=== PATIENT | female | born 1965 | race Caucasian/White ===

== ENCOUNTER → 2017-03-22 | Outpatient (CLI) | payer MEDICAID, OTHER ==
--- NOTE | 2017-03-22 15:29 | CR ---
EXAMINATION: Lumbar spine HISTORY: Pain COMPARISON: None TECHNIQUE: AP and lateral views FINDINGS: The lumbar spinal alignment appears normal. The vertebral body heights and disc spaces are grossly maintained. Minimal marginal osteophytes are noted. The SI joints are symmetric. No fractur e or acute osseous abnormality. IMPRESSION: Mild degenerative changes without acute findings.
== END ==
LOC: MW.CHFP 10:12
PROVIDERS: ATTEND Student in an Organized Health Care Education/Training Program
DX: M54.5 Low back pain (principal); M47.816 Spondylosis without myelopathy or radiculopathy, lumbar region
CPT/HCPCS: 72100; 72100-26

== ENCOUNTER 2017-04-06 10:37 | Emergency (ER) | payer MEDICAID ==
[2017-04-06] MEDS ORDERED: Sodium Chloride 0.9% 1,000 ML IV ONE (10:41)
[2017-04-06] MEDS ORDERED: Aspirin 81 MG Tab.Chew PO ONE (10:41)
--- NOTE | 2017-04-06 10:44 | EDM.PDOC ---
ED HPI GENERAL MEDICAL PROBLEM - General Chief Complaint: Chest Pain Stated Complaint: POSS HEART ATTACK Time Seen by Provider: 04/06/17 10:42 Source of Information: Reports: Patient - History of Present Illness INITIAL COMMENTS - FREE TEXT/NARRATIVE: HISTORY AND PHYSICAL: History of present illness: [] Patient presents via EMS with 1/10 chest pain nonradiating arm neck or jaw not associated with diaphoresis or shortness of breath, patient states that she is dizzy No fever nausea vomiting chills sweats Patient has history of hypertension on lisinopril Review of systems: As per history of present illness and below otherwise all systems reviewed and negative. Past medical history: As per history of present illness and as reviewed below otherwise noncontributory. Surgical history: As per history of present illness and as reviewed below otherwise noncontributory. Social history: No reported history of drug or alcohol abuse. Family history: As per history of present illness and as reviewed below otherwise noncontributory. Physical exam: HEENT: Atraumatic, normocephalic, pupils reactive, negative for conjunctival pallor or scleral icterus, mucous membranes moist, throat clear, neck supple, nontender, trachea midline. Lungs: Clear to auscultation, breath sounds equal bilaterally, chest nontender. Heart: S1S2, regular, negative for clicks, rubs, or JVD. Abdomen: Soft, nondistended, nontender. Negative for masses or hepatosplenomegaly. Negative for costovertebral tenderness. Pelvis: Stable nontender. Genitourinary: Deferred. Rectal: Deferred. Extremities: Atraumatic, negative for cords or calf pain. Neurovascular unremarkable. Neuro: Awake, alert, oriented. Cranial nerves II through XII unremarkable. Cerebellum unremarkable. Motor and sensory unremarkable throughout. Exam nonfocal. Diagnostics: [] As below EKG Chest one view Therapeutics: [] One there normal saline bolus Aspirin 324 mg chewable Lopressor 5 mg IV Patient provided one dose of nitroglycerin, more for blood pressure and chest pain Patient offered admission for observation telemetry and following of cardiac enzymes she refused Patient discharged Return if symptoms persist or worsen Impression: Atypical chest pain Hypertension Definitive disposition and diagnosis as appropriate pending reevaluation and review of above. 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 History: Reports: None Neurological History: Reports: None Psychiatric History: Reports: None Endocrine/Metabolic History: Reports: None Hematologic History: Reports: None Immunologic History: Reports: None Oncologic (Cancer) History: Reports: None Dermatologic History: Reports: None - Infectious Disease History Infectious Disease History: Reports: Chicken Pox, Mumps - Past Surgical History Head Surgeries/Procedures: Reports: None HEENT Surgical History: Reports: None GI Surgical History: Reports: None Female Surgical History: Reports: Section, Hysterectomy Musculoskeletal Surgical History: Reports: None Social & Family History - Tobacco Use Smoking Status *Q: Current Every Day Smoker Years of Tobacco use: 35 Packs/Tins Daily: 0.5 - Caffeine Use Caffeine Use: Reports: Coffee - Recreational Drug Use Recreational Drug Use: No ED ROS GENERAL - Review of Systems Review Of Systems: ROS reveals no pertinent complaints other than HPI. ED EXAM, GENERAL - Physical Exam Exam: See Below Course - Vital Signs Last Recorded V/S: Last Vital Signs Temp 36.9 C 04/06/17 10:41 Pulse 88 04/06/17 11:09 Resp 18 04/06/17 11:09 BP 179/97 H 04/06/17 11:16 Pulse Ox 99 04/06/17 11:09 - Orders/Labs/Meds Orders: Active Orders 24 hr Category Date Time Status EKG Documentation Completion [RC] STAT Care 04/06/17 10:44 Active Head wo Cont [CT] Stat Exams 04/06/17 11:01 Taken AMYLASE [CHEM] Stat Lab 04/06/17 10:46 Results CKMB [CHEM] Stat Lab 04/06/17 10:46 Results COMPREHENSIVE METABOLIC PN,CMP [CHEM] Stat Lab 04/06/17 10:46 Results CREATINE KINASE,CK [CHEM] Stat Lab 04/06/17 10:46 Results LIPASE [CHEM] Stat Lab 04/06/17 10:46 Results UA W/MICROSCOPIC [URIN] Stat Lab 04/06/17 10:41 Uncollected Labs: Laboratory Tests 04/06/17 04/06/17 04/06/17 Range/Units 10:46 10:46 10:46 WBC 9.54 (4.0-11.0) K/uL RBC 4.71 (4.30-5.90) M/uL Hgb 15.5 (12.0-16.0) g/dL Hct 46.1 H (36.0-46.0) % MCV 97.9 (80.0-98.0) fL MCH 32.9 H (27.0-32.0) pg MCHC 33.6 (31.0-37.0) g/dL RDW Std Deviation 49.1 (28.0-62.0) fl RDW Coeff of Bubba 14 (11.0-15.0) % Plt Count 204 (150-400) K/uL MPV 11.70 (7.40-12.00) fL Neut % (Auto) 56.0 (48.0-80.0) % Lymph % (Auto) 34.3 (16.0-40.0) % [place] % (Auto) 7.1 (0.0-15.0) % Eos % (Auto) 2.4 (0.0-7.0) % Baso % (Auto) 0.2 (0.0-1.5) % Neut # (Auto) 5.3 (1.4-5.7) K/uL Lymph # (Auto) 3.3 H (0.6-2.4) K/uL [place] # (Auto) 0.7 (0.0-0.8) K/uL Eos # (Auto) 0.2 (0.0-0.7) K/uL Baso # (Auto) 0.0 (0.0-0.1) K/uL Nucleated RBC % 0.0 /100WBC Nucleated RBCs # 0 K/uL INR (0.86-1.11) Sodium 140 (136-146) mmol/L Potassium 3.8 (3.5-5.1) mmol/L Chloride 107 (98-110) mmol/L Carbon Dioxide 19 L (21-31) mmol/L BUN 13 (6.0-23.0) mg/dL Creatinine 0.8 (0.6-1.5) mg/dL Est Cr Clr Drug Dosing 60.43 mL/min Estimated GFR (MDRD) > 60.0 ml/min Glucose 96 (60-110) mg/dL Calcium 9.4 (8.8-10.8) mg/dL Total Bilirubin 0.6 (0.1-1.5) mg/dL AST 20 (5-40) IU/L ALT 16 (8-54) IU/L Alkaline Phosphatase 86 (40-150) Creatine Kinase 63 (9-236) IU/L Troponin I < 0.10 (0.0-0.29) NG/ML Total Protein 8.0 (6.0-8.0) g/dL Albumin 4.8 (3.5-5.0) g/dL Globulin 3.2 (2.0-3.5) g/dL Albumin/Globulin Ratio 1.5 (1.3-2.8) Amylase 103 H (10-90) U/L Lipase 38 (7-80) U/L 04/06/17 Range/Units 10:46 WBC (4.0-11.0) K/uL RBC (4.30-5.90) M/uL Hgb (12.0-16.0) g/dL Hct (36.0-46.0) % MCV (80.0-98.0) fL MCH (27.0-32.0) pg MCHC (31.0-37.0) g/dL RDW Std Deviation (28.0-62.0) fl RDW Coeff of Bubba (11.0-15.0) % Plt Count (150-400) K/uL MPV (7.40-12.00) fL Neut % (Auto) (48.0-80.0) % Lymph % (Auto) (16.0-40.0) % [place] % (Auto) (0.0-15.0) % Eos % (Auto) (0.0-7.0) % Baso % (Auto) (0.0-1.5) % Neut # (Auto) (1.4-5.7) K/uL Lymph # (Auto) (0.6-2.4) K/uL [place] # (Auto) (0.0-0.8) K/uL Eos # (Auto) (0.0-0.7) K/uL Baso # (Auto) (0.0-0.1) K/uL Nucleated RBC % /100WBC Nucleated RBCs # K/uL INR 0.97 (0.86-1.11) Sodium (136-146) mmol/L Potassium (3.5-5.1) mmol/L Chloride (98-110) mmol/L Carbon Dioxide (21-31) mmol/L BUN (6.0-23.0) mg/dL Creatinine (0.6-1.5) mg/dL Est Cr Clr Drug Dosing mL/min Estimated GFR (MDRD) ml/min Glucose (60-110) mg/dL Calcium (8.8-10.8) mg/dL Total Bilirubin (0.1-1.5) mg/dL AST (5-40) IU/L ALT (8-54) IU/L Alkaline Phosphatase (40-150) Creatine Kinase (9-236) IU/L Troponin I (0.0-0.29) NG/ML Total Protein (6.0-8.0) g/dL Albumin (3.5-5.0) g/dL Globulin (2.0-3.5) g/dL Albumin/Globulin Ratio (1.3-2.8) Amylase (10-90) U/L Lipase (7-80) U/L Meds: Medications Discontinued Medications Generic Name Dose Route Start Last Admin Trade Name Freq PRN Reason Stop Dose Admin Aspirin 324 mg 04/06/17 10:41 04/06/17 10:47 Aspirin PO 04/06/17 10:42 324 mg ONETIME ONE Administration Sodium Chloride 1,000 mls @ 999 mls/hr 04/06/17 10:41 04/06/17 10:48 Normal Saline IV 04/06/17 11:41 999 mls/hr STAT ONE Administration Metoprolol Tartrate 5 mg 04/06/17 10:45 04/06/17 10:52 Lopressor .XX 04/06/17 10:46 5 mg NOW STA Administration Nitroglycerin 0.4 mg 04/06/17 11:09 04/06/17 11:16 Nitrostat SL 04/06/17 11:20 0.4 mg Q5M PRN Administration Chest Pain Departure - Departure Time of Disposition: 12:22 Disposition: Home, Self-Care 01 Condition: good Clinical Impression: Atypical chest pain, Hypertension - Discharge Information Forms: ED Department Discharge Additional Instructions: Return if symptoms persist or worsen or new concerning symptoms develop Followup with primary care in 2 weeks sooner as needed [facility] - Primary Care [address] [place] [id number] The following information is given to patients seen in the emergency department who are being discharged to home. This information is to outline your options for follow-up care. We provide all patients seen in our emergency department with a follow-up referral. The need for follow-up, as well as the timing and circumstances, are variable depending upon the specifics of your emergency department visit. If you don't have a primary care physician on staff, we will provide you with a referral. We always advise you to contact your personal physician following an emergency department visit to inform them of the circumstance of the visit and for follow-up with them and/or the need for any referrals to a consulting specialist. The emergency department will also refer you to a specialist when appropriate. This referral assures that you have the opportunity for follow-up care with a specialist. All of these measure are taken in an effort to provide you with optimal care, which includes your follow-up. Under all circumstances we always encourage you to contact your private physician who remains a resource for coordinating your care. When calling for follow-up care, please make the office aware that this follow-up is from your recent emergency room visit. If for any reason you are refused follow-up, please contact the [facility] emergency department at and asked to speak to the emergency department charge nurse. - My Orders Last 24 Hours: My Active Orders 04/06/17 10:41 UA W/MICROSCOPIC [URIN] Stat 04/06/17 10:44 EKG Documentation Completion [RC] STAT 04/06/17 10:46 AMYLASE [CHEM] Stat CKMB [CHEM] Stat COMPREHENSIVE METABOLIC PN,CMP [CHEM] Stat CREATINE KINASE,CK [CHEM] Stat LIPASE [CHEM] Stat 04/06/17 11:01 Head wo Cont [CT] Stat - Assessment/Plan Last 24 Hours: My Active Orders 04/06/17 10:41 UA W/MICROSCOPIC [URIN] Stat 04/06/17 10:44 EKG Documentation Completion [RC] STAT 04/06/17 10:46 AMYLASE [CHEM] Stat CKMB [CHEM] Stat COMPREHENSIVE METABOLIC PN,CMP [CHEM] Stat CREATINE KINASE,CK [CHEM] Stat LIPASE [CHEM] Stat 04/06/17 11:01 Head wo Cont [CT] Stat
[2017-04-06] MEDS ORDERED: Metoprolol Tartrate 5 MG/5 ML SDV STA (10:45)
[2017-04-06] MEDS ORDERED: Nitroglycerin 0.4 MG Tab.SL SL PRN (11:09)
[2017-04-06 11:20] LABS: CHLORIDE,CL 107 mmol/L (98-110); SODIUM,NA 140 mmol/L (136-146)
--- NOTE | 2017-04-06 11:32 | CR ---
EXAM DATE: 04/06/17 PATIENT'S AGE: 51 Patient: RAIN SRINIVASAN Facility: [place], [place] Site . Site : 1965 Study: XRay Chest [id number]/2/2017 11:14:26 AM Ordering Physician: Rena Herron Final Report: INDICATION: Pain/shortness of breath. Single AP view Findings: The lungs are clear. Pulmonary vascularity, mediastinum and cardiac silhouette are within normal limits. No effusions and no pneumothorax. Osseous structures appear unremarkable. Impression: No evidence of acute cardiopulmonary disease. Dictated by: Jamir Gupta MD @ 04/06/2017 11:23:17 (Electronic Signature) Report Signed by Proxy. STEPHANI
--- NOTE | 2017-04-06 12:25 | CT ---
EXAM DATE: 04/06/17 PATIENT'S AGE: 51 Patient: RAIN SRINIVASAN Facility: [place], [place] Site . Site : 1965 Study: CT Head [id number]/2/[id number] 11:48:00 AM Ordering Physician: Rena Herron Final Report: INDICATION: dizziness, tachycardia, shaking R hand CT SCAN HEAD WITHOUT CONTRAST TECHNIQUE: Direct axial non-contrast images of the head from foramen magnum to vertex are provided. FINDINGS: Axial images of the brain demonstrate a normal appearance of the ventricles, sulci and basal cistern. There is no evidence of intracranial hemorrhage, infarct, mass or mass effect. Oconnell-white differentiation is normal throughout. Visualized mastoid air cells and middle ear cavities are clear. The visualized paranasal sinuses are clear other than small mucous retention cyst posterior left sphenoid. The orbits are symmetric. CONCLUSION: Unremarkable unenhanced head CT. Dictated by: Jamir Gupta MD @ 04/06/2017 12:05:04 (Electronic Signature) Report Signed by Proxy. STEPHANI
[2017-04-06 16:58] VITALS: BP 142/88
== END 2017-04-06 13:11 | disposition home or self-care (01) ==
LOC: MW.ED 10:37
DX: R07.89 Other chest pain (principal); I10 Essential (primary) hypertension; F17.210 Nicotine dependence, cigarettes, uncomplicated; Z90.710 Acquired absence of both cervix and uterus; Z79.899 Other long term (current) drug therapy
CPT/HCPCS: 36415; 70450; 71010; 80053; 82150; 82550; 82553; 83690; 84484; 85025; 85610; 93005; 96361; 96374; 99285; A9270; J7040; 99284

== ENCOUNTER 2017-09-21 14:00 | Observation (INO) | payer MEDICAID ==
[2017-09-21] MEDS ORDERED: Aspirin 81 MG Tab.Chew PO ONE (14:08)
[2017-09-21] MEDS ORDERED: Sodium Chloride 0.9% 1,000 ML IV ONE (14:09)
[2017-09-21] MEDS: Nitroglycerin 0.4 MG Tab.SL SL PRN ×3 (14:18→14:35)
--- NOTE | 2017-09-21 14:32 | EDM.PDOC ---
ED HPI GENERAL MEDICAL PROBLEM - General Chief Complaint: Chest Pain Stated Complaint: chest pain Time Seen by Provider: 09/21/17 14:22 Source of Information: Reports: Patient History Limitations: Reports: No Limitations - History of Present Illness INITIAL COMMENTS - FREE TEXT/NARRATIVE: HISTORY AND PHYSICAL: Chest pain History of present illness: Patient is a 52-year-old female who presents to the emergency room today with complaints of midsternal chest pain. States she was "out partying last night" and had felt fine. Woke up this morning proceeded to make breakfast and started having midsternal chest pain that would not resolve, which was accompanied with "fogginess". Reports that nothing would make the pain better and nothing makes the pain worse. Pain has been steady at a 3 out of 10. She denies that the chest pain radiating anywhere. Denies any shortness of breath, diaphoresis, nausea, vomiting, diarrhea, headache. Denies any syncopal events, palpitations, or recent injury. History of hypertension. She was on lisinopril previously for this, but states that since losing so much weight she has taken herself off of this medication. She reports routinely checking her blood pressure at home which has been normal. History of smoking 1 pack per day 46 years. No family history of heart disease. Father has history of hypertension. Review of systems: As per history of present illness and below otherwise all systems reviewed and negative. Past medical history: As per history of present illness and as reviewed below otherwise noncontributory. Surgical history: As per history of present illness and as reviewed below otherwise noncontributory. Social history: No reported history of drug or alcohol abuse. Family history: As per history of present illness and as reviewed below otherwise noncontributory. Physical exam: Gen.: Well-developed and well-nourished 52-year-old female. Appears nontoxic. Alert and oriented. HEENT: Atraumatic, normocephalic, pupils reactive, negative for conjunctival pallor or scleral icterus, mucous membranes moist, throat clear, neck supple, nontender, trachea midline. Lungs: Clear to auscultation, breath sounds equal bilaterally, chest nontender. Chest pain is non-reproducible. Heart: S1S2, regular rate and rhythm. No overt murmurs. Abdomen: Soft, nondistended, nontender. Negative for masses or hepatosplenomegaly. Negative for costovertebral tenderness. Pelvis: Stable nontender. Genitourinary: Deferred. Rectal: Deferred. Extremities: Atraumatic, negative for cords or calf pain. Neurovascular unremarkable. Neuro: Awake, alert, oriented. Cranial nerves II through XII unremarkable. Cerebellum unremarkable. Motor and sensory unremarkable throughout. Exam nonfocal. EKG was reviewed by me and Dr. Beckford. Current blood pressure is 184/86, patient reports that this is high for her. Current chest pain is 3/10. We did discuss the plan of action for diagnostics and therapeutics. Due to her multiple risk factors I did inform the patient that she will likely be offered admission at the end of her evaluation today. Patient states she is agreeable to stay "if you think it's best". Will continue to monitor. The labs, EKG and x-ray were reviewed by me and discussed with the patient. Due to the patient's risk factors of hypertension, age, smoking I suggested that the patient stay for observation. The patient is agreeable. Dr. Winkler reviewed the case and excepted to keep for observation. Nitro paste was applied here. Telemetry applied prior to the floor. A signs remained stable. Pain is currently a 0 out of 10. Diagnostics: CBC, CMP, troponin, EKG, one view chest, cardiac catheterization technician Therapeutics: Aspirin, IV fluid, nitroglycerin sublingual Nitroglycerin paste Impression: Chest pain Plan: Observation admission for chest pain rule out [place] Telemetry Definitive disposition and diagnosis as appropriate pending reevaluation and review of above. 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 History: Reports: None Neurological History: Reports: None Psychiatric History: Reports: None Endocrine/Metabolic History: Reports: None Hematologic History: Reports: None Immunologic History: Reports: None Oncologic (Cancer) History: Reports: None Dermatologic History: Reports: None - Infectious Disease History Infectious Disease History: Reports: Chicken Pox, Mumps - Past Surgical History Head Surgeries/Procedures: Reports: None HEENT Surgical History: Reports: None GI Surgical History: Reports: None Female Surgical History: Reports: Section, Hysterectomy Musculoskeletal Surgical History: Reports: None Social & Family History - Family History Family Medical History: Noncontributory - Tobacco Use Smoking Status *Q: Current Every Day Smoker Years of Tobacco use: 45 Packs/Tins Daily: 0.5 - Caffeine Use Caffeine Use: Reports: Coffee Caffeine Use Comment: 2cups/day - Alcohol Use Days Per Week of Alcohol Use: 4 Number of Drinks Per Day: 7 Total Drinks Per Week: 28 - Recreational Drug Use Recreational Drug Use: Yes Recreational Drug Type: Reports: Marijuana/Hashish Recreational Drug Use Frequency: Daily Recreational Drug Last Use: last night ED ROS GENERAL - Review of Systems Review Of Systems: ROS reveals no pertinent complaints other than HPI. ED EXAM, GENERAL - Physical Exam Exam: See Below (See dictation) Course - Vital Signs Last Recorded V/S: Last Vital Signs Temp 36.6 C 09/21/17 14:09 Pulse 82 09/21/17 15:15 Resp 12 09/21/17 15:15 BP 140/80 09/21/17 15:15 Pulse Ox 96 09/21/17 15:15 - Orders/Labs/Meds Orders: Active Orders 24 hr Category Date Time Status Admission Status [Patient Status] [ADT] Stat ADT 09/21/17 15:24 Ordered EKG Documentation Completion [RC] STAT Care 09/21/17 14:08 Active Nitroglycerin [Nitro-Bid 2%] Med 09/21/17 15:25 Once 1 gm TOP ONETIME ONE Labs: Laboratory Tests 09/21/17 09/21/17 Range/Units 14:34 14:34 WBC 8.58 (4.0-11.0) K/uL RBC 4.31 (4.30-5.90) M/uL Hgb 14.5 (12.0-16.0) g/dL Hct 42.9 (36.0-46.0) % MCV 99.5 H (80.0-98.0) fL MCH 33.6 H (27.0-32.0) pg MCHC 33.8 (31.0-37.0) g/dL RDW Std Deviation 48.5 (28.0-62.0) fl RDW Coeff of Bubba 13 (11.0-15.0) % Plt Count 226 (150-400) K/uL MPV 11.50 (7.40-12.00) fL Neut % (Auto) 64.6 (48.0-80.0) % Lymph % (Auto) 26.2 (16.0-40.0) % [place] % (Auto) 6.4 (0.0-15.0) % Eos % (Auto) 2.6 (0.0-7.0) % Baso % (Auto) 0.2 (0.0-1.5) % Neut # (Auto) 5.5 (1.4-5.7) K/uL Lymph # (Auto) 2.3 (0.6-2.4) K/uL [place] # (Auto) 0.6 (0.0-0.8) K/uL Eos # (Auto) 0.2 (0.0-0.7) K/uL Baso # (Auto) 0.0 (0.0-0.1) K/uL Nucleated RBC % 0.0 /100WBC Nucleated RBCs # 0 K/uL Sodium 142 (136-146) mmol/L Potassium 3.6 (3.5-5.1) mmol/L Chloride 107 (98-110) mmol/L Carbon Dioxide 27 (21-31) mmol/L BUN 16 (6.0-23.0) mg/dL Creatinine 0.7 (0.6-1.5) mg/dL Est Cr Clr Drug Dosing 68.29 mL/min Estimated GFR (MDRD) > 60.0 ml/min Glucose 148 H (60-110) mg/dL Calcium 9.2 (8.8-10.8) mg/dL Total Bilirubin 0.3 (0.1-1.5) mg/dL AST 17 (5-40) IU/L ALT 17 (8-54) IU/L Alkaline Phosphatase 84 (40-150) Troponin I < 0.10 (0.0-0.29) NG/ML Total Protein 7.1 (6.0-8.0) g/dL Albumin 4.0 (3.5-5.0) g/dL Globulin 3.1 (2.0-3.5) g/dL Albumin/Globulin Ratio 1.3 (1.3-2.8) Meds: Medications Discontinued Medications Generic Name Dose Route Start Last Admin Trade Name Freq PRN Reason Stop Dose Admin Aspirin 324 mg 09/21/17 14:08 09/21/17 14:19 Aspirin PO 09/21/17 14:09 324 mg ONETIME ONE Administration Sodium Chloride 1,000 mls @ 999 mls/hr 09/21/17 14:09 09/21/17 14:24 Normal Saline IV 09/21/17 15:09 999 mls/hr STAT ONE Administration Nitroglycerin 0.4 mg 09/21/17 14:08 09/21/17 14:35 Nitrostat SL 0.4 mg Q5M PRN Administration Chest Pain Departure - Departure Time of Disposition: 15:27 Disposition: Refer to Observation Clinical Impression: Chest pain, rule out acute myocardial infarction Referrals: Manuel Mercer MD [Primary Care Provider] - Forms: ED Department Discharge - My Orders Last 24 Hours: My Active Orders 09/21/17 14:08 EKG Documentation Completion [RC] STAT 09/21/17 15:24 Admission Status [Patient Status] [ADT] Stat 09/21/17 15:25 Nitroglycerin [Nitro-Bid 2%] 1 gm TOP ONETIME ONE - Assessment/Plan Last 24 Hours: My Active Orders 09/21/17 14:08 EKG Documentation Completion [RC] STAT 09/21/17 15:24 Admission Status [Patient Status] [ADT] Stat 09/21/17 15:25 Nitroglycerin [Nitro-Bid 2%] 1 gm TOP ONETIME ONE
[2017-09-21 15:03] LABS: CHLORIDE,CL 107 mmol/L (98-110); SODIUM,NA 142 mmol/L (136-146)
--- NOTE | 2017-09-21 15:13 | CR ---
EXAMINATION: PA chest radiograph. HISTORY: Chest pain. FINDINGS: The trachea is midline. The cardiomediastinal silhouette is within normal limits. No pulmonary infilt rates, effusions or pneumothorax. Small calcified granulomas noted. Osseous structures appear unremarkable. IMPRESSION: No acute cardiopulmonary process.
[2017-09-21] MEDS ORDERED: Nitroglycerin 2% Oint 1 GM UD Packet TOP ONE (15:25)
[2017-09-21] MEDS ORDERED: Acetaminophen 325 MG Tab PO PRN (15:51)
[2017-09-21] MEDS ORDERED: Ondansetron 4 MG/2 ML SDV IVPUSH PRN (15:51)
--- NOTE | 2017-09-21 16:05 | PCM.HP ---
H&P History of Present Illness - General Date of Service: 09/21/17 Admit Problem/Dx: Chest pain Source of Information: Patient History Limitations: Reports: No Limitations - History of Present Illness Initial Comments - Free Text/Narative: This 52 year old female with pmh of HTN, tobacco use, and alcohol use presented to the ED with concerns of midsternal chest pain. This pain started around noon today after eating a breakfast burrito with salsa. She reports the pain as a dull pain that is pushing out of her chest. She denies SOB, radiation of pain to arm, neck or back, no diaphoresis. She was at rest when the pain started. She check her BP at the time of the pain and noted it was 160/100s which is very elevated for her. She reports she tried taking one of her husbands nitros, but it didn't dissolve. Nothing was helping her pain. She reports she had a stress test 20+ years ago, no stenting or angiogram. No hx of CAD or ID for her and no DM. She reports burping more and more that last week or so. She reports she drinks daily 4-5 beers or more. She does not wake up needing alcohol or shaking. She has never withdrawn from alcohol. She smokes, hand rolled cigarettes approximately 10 daily and also reports nearly regular marijuana use as well. In the ED labwork WNL, glucose 148. A1c 5.3. Troponin negative. EKG, ST 100s with slight prolonged [place], no ST segment changes. CXR negative. BP in ED 180/80s , she was given nitro x3, with resolution in pain. BP on admission to floor 140/ 80s, nitro paste in place. She will be admitted for chest pain R/O ACS. PCP, Dr Mercer. chest Pain Score (Numeric/FACES): 3 - Related Data Allergies/Adverse Reactions: Allergies Allergy/AdvReac Type Severity Reaction Status Date / Time No Known Allergies Allergy Verified 09/21/17 14:08 Home Medications: Home Meds Aspirin [Gonsalo Chewable] 81 mg PO DAILY 09/21/17 [History] Past Medical History HEENT History: Reports: None Other HEENT History: wears glasses Cardiovascular History: Reports: Hypertension. Denies: Afib, Blood Clots/VTE/ DVT, CAD, Heart Failure, High Cholesterol, ID Respiratory History: Reports: None. Denies: Asthma, COPD, Sleep Apnea, SOB Gastrointestinal History: Reports: None. Denies: GERD, GI Bleed Genitourinary History: Reports: None. Denies: Acute Renal Failure, Chronic Renal Insuffiency CRM MANAGER History: Reports: Musculoskeletal History: Reports: None Neurological History: Reports: None Psychiatric History: Reports: Addiction, Anxiety Endocrine/Metabolic History: Reports: None. Denies: Diabetes, Type II Hematologic History: Reports: None Immunologic History: Reports: None Oncologic (Cancer) History: Reports: None Dermatologic History: Reports: None - Infectious Disease History Infectious Disease History: Reports: Chicken Pox, Mumps - Past Surgical History Head Surgeries/Procedures: Reports: None HEENT Surgical History: Reports: None GI Surgical History: Reports: None Female Surgical History: Reports: Section, Hysterectomy Musculoskeletal Surgical History: Reports: None Social & Family History - Family History Family Medical History: Noncontributory - Tobacco Use Smoking Status *Q: Current Every Day Smoker Years of Tobacco use: 45 Packs/Tins Daily: 0.5 Smoking Cessation Information Provided To Patient: Yes Second Hand Smoke Exposure: Yes - Caffeine Use Caffeine Use: Reports: Coffee Caffeine Use Comment: 2cups/day - Alcohol Use Days Per Week of Alcohol Use: 4 Number of Drinks Per Day: 7 Total Drinks Per Week: 28 Alcohol Use Frequency: Daily - Recreational Drug Use Recreational Drug Use: Yes Recreational Drug Type: Reports: Marijuana/Hashish Recreational Drug Use Frequency: Daily Recreational Drug Last Use: last night - Living Situation & Occupation Living situation: Reports: 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 Denies: Fever, Chills, Malaise, Weakness HEENT: Reports: No Symptoms. Denies: Headaches, Sinus Congestion, Sore Throat, Visual Changes Pulmonary: Reports: No Symptoms. Denies: Shortness of Breath, Cough, Sputum Cardiovascular: Reports: No Symptoms. Denies: Chest Pain (no longer having chest pain) Gastrointestinal: Reports: Other (burping alot). Denies: Abdominal Pain, Black Stool, Bloody Stool, Nausea, Vomiting Genitourinary: Reports: No Symptoms. Denies: Dysuria, Frequency, Burning Skin: Reports: No Symptoms. Denies: Jaundice, Rash Neurological: Reports: No Symptoms Hematologic/Lymphatic: Reports: No Symptoms Immunologic: Reports: No Symptoms Exam - Exam Exam: See Below - Vital Signs Vital Signs: Last Vital Signs Temp 97.8 F 09/21/17 14:09 Pulse 82 09/21/17 15:15 Resp 12 09/21/17 15:15 BP 140/80 09/21/17 15:15 Pulse Ox 96 09/21/17 15:15 Weight: 60.328 kg - Exam General: Alert, Oriented, Cooperative HEENT: Conjunctiva Clear, Mucosa Moist & [place], Other (multiple missing teeth and broken teeth.) Lungs: Clear to Auscultation, Normal Respiratory Effort Cardiovascular: Regular Rate, Regular Rhythm, Normal S1, Normal S2, Other (no chest wall tenderness to palpation.). No: Tachycardia, Systolic Murmur GI/Abdominal Exam: Normal Bowel Sounds, Soft, Non-Tender, No Organomegaly, No Distention, No Abnormal Bruit, No Mass, Pelvis Stable, Other (burping noted during assessment) Back Exam: Normal Inspection, Full Range of Motion, NT Extremities: Normal Inspection, Normal Range of Motion, Non-Tender, No Pedal Edema, Normal Capillary Refill Neuro Extensive - Mental Status: Alert, Oriented x3, Normal Mood/Affect, Normal Cognition Psychiatric: Alert, Normal Affect, Normal Mood - Patient Data Result Diagrams: 09/21/17 14:34 09/21/17 14:34 EKG INTERPRETATION EKG Date: 09/21/17 Rhythm: NSR Rate (Beats/Min): 100 [place]: Normal P-Wave: Present ([place] interval prolonged slightly) *Q Meaningful Use (ADM) - VTE *Q VTE Criteria *Q: - Stroke *Q Stroke Criteria *Q: - AMI *Q AMI Criteria *Q: - Problem List (1) Chest pain, rule out acute myocardial infarction SNOMED Code(s): 53453659 ICD Code: R07.9 - CHEST PAIN, UNSPECIFIED Status: Acute Current Visit: Yes (2) Burping SNOMED Code(s): 631397387 ICD Code: R14.2 - ERUCTATION Status: Acute Current Visit: Yes (3) Tobacco abuse SNOMED Code(s): 696202625 ICD Code: Z72.0 - TOBACCO USE Status: Chronic Current Visit: Yes (4) Alcohol use SNOMED Code(s): 593447403 ICD Code: Z78.9 - OTHER SPECIFIED HEALTH STATUS Status: Chronic Current Visit: Yes (5) Hypertension SNOMED Code(s): 08107936 ICD Code: I10 - ESSENTIAL (PRIMARY) HYPERTENSION Status: Chronic Current Visit: No Qualifiers: Hypertension type: essential hypertension Qualified Code(s): I10 - Essential (primary) hypertension Problem List Initiated/Reviewed/Updated: Yes Orders Last 24hrs: Active Orders 24 hr Category Date Time Status Communication Order [RC] ROUTINE Care 09/21/17 15:54 Ordered Intake and Output [RC] QSHIFT Care 09/21/17 15:51 Ordered Oxygen Therapy [RC] PRN Care 09/21/17 15:51 Ordered Telemetry Monitoring [Cardiac Monitoring] [RC] . Care 09/21/17 15:53 Ordered DIRECTED Up With Assistance [RC] ASDIRECTED Care 09/21/17 15:51 Ordered VTE/DVT Education [RC] PER UNIT ROUTINE Care 09/21/17 15:51 Ordered Vital Signs [RC] Q4H Care 09/21/17 15:51 Ordered Heart Healthy Diet [DIET] Diet 09/21/17 Dinner Ordered GLYCOSYLATED HEMOGLOBIN,HGBA1C [CHEM] Routine Lab 09/21/17 15:51 Ordered LIPID PANEL [CHEM] Routine Lab 09/21/17 15:51 Ordered TROPONIN I [CHEM] Q6H Lab 09/21/17 20:30 Ordered TROPONIN I [CHEM] Q6H Lab 09/22/17 02:30 Ordered Acetaminophen [Tylenol] Med 09/21/17 15:51 Ordered 650 mg PO Q4H PRN Aspirin Med 09/22/17 09:00 Ordered 81 mg PO DAILY Enoxaparin [Lovenox] Med 09/22/17 09:00 Ordered 40 mg SUBCUT DAILY Ondansetron [Zofran] Med 09/21/17 15:51 Ordered 4 mg IVPUSH Q4H PRN Resuscitation Status Routine Resus Stat 09/21/17 15:51 Ordered Medication Orders Acetaminophen (Tylenol) 650 mg PO Q4H PRN PRN Reason: Pain Aspirin (Aspirin) 81 mg PO DAILY [facility] Enoxaparin Sodium (Lovenox) 40 mg SUBCUT DAILY [facility] Ondansetron HCl (Zofran) 4 mg IVPUSH Q4H PRN PRN Reason: Nausea Assessment/Plan Comment:: This 52 year old female admitted with chest pain R/O ACS 1. Chest pain: Will monitor on telemetry. Trend troponins. A1c 5.3, Triglycerides 77, LDL 96, HDL 62. Possible cause uncontrolled HTN or GERD. Did speak with her for 5 or more minutes regarding risk of smoking and benefits of stopping. Not interested in smoking cessation at this time. WIll arrange outpatient appt with PCP and outpatient stress test. 2. HTN: Uncontrolled. Will start Lisinopril 10 mg. 3. Possible GERD: frequent burping, will give Protonix, may benefit from daily dosing at home. Did speak to her about alcohol intake and GERD. No interest in stopping drinking at this time. Does not take many NSAID, except for daily ASA. VTE prophylaxis: Lovenox.
[2017-09-21] MEDS ORDERED: Pantoprazole 40 MG Vial IVPUSH SCH (17:00)
[2017-09-21] MEDS: Lisinopril 10 MG Tab PO SCH (17:16)
[2017-09-22 08:08] VITALS: BP 145/71
[2017-09-22] MEDS: Lisinopril 10 MG Tab PO SCH (08:08)
--- NOTE | 2017-09-22 08:38 | PCM.DCSUM1 ---
Discharge Summary - Discharge Data Discharge Date: 09/22/17 Discharge Disposition: Home, Self-Care 01 Condition: Good - Patient Summary/Data Hospital Course: 52 year old female with pmh of HTN, tobacco use, presented to the ED with midsternal chest pain. In the ED labwork WNL, glucose 148. A1c 5.3. Troponin negative. EKG, ST 100s with slight prolonged [place], no ST segment changes. CXR negative. BP in ED 180/80s, she was given nitro x3, with resolution in pain. BP on admission to floor 140/80s. She was started on Lisinopril 10mg daily for her hypertension and given protonix for possible GERD. She ruled out for acute coronary syndrome with serial negative cardiac enzymes and no events on telemetry. She was instructed on smoking cessation and to cut back on her drinking. She was discharged on protonix and lisinopril to follow up with Dr. Mercer and outpatient cardiac stress testing. - Discharge Plan Prescriptions/Med Rec: Lisinopril [Prinivil] 10 mg PO DAILY #30 tablet Pantoprazole Sodium [Protonix] 40 mg PO DAILY #14 tablet. Home Medications: Home Meds Aspirin [Gonsalo Chewable Aspirin] 81 mg PO DAILY 09/21/17 [History] Lisinopril [Prinivil] 10 mg PO DAILY #30 tablet 09/22/17 [Rx] Pantoprazole Sodium [Protonix] 40 mg PO DAILY #14 tablet. 09/22/17 [Rx] Referrals: Manuel Mercer MD [Primary Care Provider] - 10/01/17 12:00 pm - Patient Data Vitals - Most Recent: Last Vital Signs Temp 35.6 C 09/22/17 08:00 Pulse 68 09/22/17 08:00 Resp 22 H 09/22/17 08:00 BP 145/71 H 09/22/17 08:08 Pulse Ox 96 09/22/17 08:00 Weight - Most Recent: 60.328 kg I&O - Last 24 hours: Intake & Output 09/21/17 09/22/17 09/22/17 22:59 06:59 14:59 Intake Total 150 Output Total 550 Balance -400 Lab Results - Last 24 hrs: Laboratory Results - last 24 hr 09/21/17 09/22/17 Range/Units 20:41 02:25 Troponin I < 0.10 < 0.10 (0.0-0.29) NG/ML Med Orders - Current: Current Medications Acetaminophen (Tylenol) 650 mg PO Q4H PRN PRN Reason: Pain Aspirin (Aspirin) 81 mg PO DAILY [facility] Last Admin: 09/22/17 08:08 Dose: 81 mg Enoxaparin Sodium (Lovenox) 40 mg SUBCUT DAILY [facility] Last Admin: 09/22/17 08:08 Dose: 40 mg Lisinopril (Prinivil) 10 mg PO DAILY [facility] Last Admin: 09/22/17 08:08 Dose: 10 mg Ondansetron HCl (Zofran) 4 mg IVPUSH Q4H PRN PRN Reason: Nausea Pantoprazole Sodium (Protonix Iv) 40 mg IVPUSH Q24H [facility] Last Admin: 09/21/17 17:16 Dose: 40 mg Discontinued Medications Aspirin (Aspirin) 324 mg PO ONETIME ONE Stop: 09/21/17 14:09 Last Admin: 09/21/17 14:19 Dose: 324 mg Sodium Chloride (Normal Saline) 1,000 mls @ 999 mls/hr IV STAT ONE Stop: 09/21/17 15:09 Last Admin: 09/21/17 14:24 Dose: 999 mls/hr Nitroglycerin (Nitrostat) 0.4 mg SL Q5M PRN PRN Reason: Chest Pain Last Admin: 09/21/17 14:35 Dose: 0.4 mg Nitroglycerin (Nitro-Bid 2%) 1 gm TOP ONETIME ONE Stop: 09/21/17 15:26 Last Admin: 09/21/17 15:33 Dose: 1 gm *Q Meaningful Use (DIS) - VTE *Q VTE Criteria *Q: - Stroke *Q Stroke Criteria *Q: - AMI *Q AMI Criteria *Q:
[2017-09-22] MEDS ORDERED: Aspirin 81 MG Tab.Chew PO SCH (09:00)
[2017-09-22] MEDS ORDERED: Enoxaparin 40 MG/0.4 ML Syringe SUBCUT SCH (09:00)
== END 2017-09-22 09:30 | disposition home or self-care (01) ==
LOC: MW.ED 14:00 → MW.MS 15:34
PROVIDERS: ADMIT Internal Medicine; ATTEND Internal Medicine
DX: R07.2 Precordial pain (principal); I10 Essential (primary) hypertension; F17.210 Nicotine dependence, cigarettes, uncomplicated; F41.9 Anxiety disorder, unspecified; R14.2 Eructation; Z90.710 Acquired absence of both cervix and uterus; Z79.82 Long term (current) use of aspirin; Z98.890 Other specified postprocedural states
CPT/HCPCS: 36415; 71010; 80053; 80061; 83036; 84484; 85025; 93005; 99285; A9270; C9113; J1650; J7040; 96374; 99284; G0378